=== PATIENT | female | born 1960 ===

== ENCOUNTER 2020-05-09 07:10 | Inpatient (IN) | payer MEDICAID ==
[~2020-05-09] VITALS: Ht 157.5 cm; Wt 80.2 kg
[~2020-05-09 07:10] MED LIST: BENZ2TAB6 PO; CEPH-376 PO; HALO50AM4 IM; HYDR-3240 PO; METH10TA3 PO; RANI150T4 PO; SULF-169 PO; SULF1TAB24 PO; buspar PO; cogentin PO
[2020-05-09] MEDS ORDERED: LORazepam 2 MG/ML, 1ML ONE (07:17)
--- NOTE | 2020-05-09 07:29 | NUR ---
UPON ARRIVAL WITNESSED TONIC CLONIC SEIZURE THAT LASTED APPROXIMATELY 30 SECONDS.
[2020-05-09] MEDS ORDERED: LORazepam 2 MG/ML, 1ML IVPush ONE (07:30)
--- NOTE | 2020-05-09 07:34 | NUR ---
PT HAD ANTHER 30 SECOND TONIC CLONIC SEIZURE. IV ESTABLISHED AT THIS TIME AND MEDICATED NOTED ON MAR
[2020-05-09] MEDS ORDERED: ZIPRASIDONE 20 MG INJ IM ONE (07:43)
[2020-05-09 07:56] LABS: BASOPHILS % (AUTO) 1 % (0-1); EOSINOPHILS % (AUTO) 1 % (1-7); LYMPHOCYTES % (AUTO) 18 % (22-44); MEAN CORPUSCULAR HEMOGLOBIN 28.8 pg (27.0-34.8); MEAN CORPUSCULAR HGB CONC 33.4 g/dL (32.4-35.8); MEAN PLATELET VOLUME 7.7 fL (7.4-10.4); MONOCYTES % (AUTO) 8 % (2-9); NEUTROPHILS % (AUTO) 74 % (42-75); PLATELET COUNT 239 x10^3/uL (130-400); RED BLOOD COUNT 5.16 x10^6/uL (3.82-5.3)
[2020-05-09 08:00] LABS: MD NO
[2020-05-09] MEDS ORDERED: LEVETIRACETAM 1,000 MG in SODIUM CHLORIDE 0.9% 100 ML IV ONE (08:00)
[2020-05-09] MEDS ORDERED: THIAMINE 100 MG in DEXTROSE 5% 50 ML IVPB ONE (08:00)
[2020-05-09] MEDS ORDERED: SODIUM CHLORIDE FLUSH 10ML SYR IVF ONE (08:00)
[2020-05-09 08:04] LABS: ALANINE AMINOTRANSFERASE 72 U/L (12-78); ALBUMIN 3.5 g/dL (3.4-5.0); ANION GAP 6 mmol/L (5-15); CALCIUM 8.4 mg/dL (8.5-10.1); CHLORIDE 102 mmol/L (98-107); CREATININE 0.58 mg/dL (0.55-1.02); SALICYLATE LEVEL 2.3 mg/dL (2.8-20.0)
[2020-05-09 08:06] LABS: ALKALINE PHOSPHATASE 109 U/L (45-117); BILIRUBIN,TOTAL 0.7 mg/dL (0.2-1.0)
--- NOTE | 2020-05-09 08:09 | NUR ---
PT DROWSY, AROUSABLE WITH STIMULATION. BREATHING EVEN AND UNLABORED. ADDITIONAL ANTI-SEIZURE MED STARTED AND PT TO CT VIA GURNEY
[2020-05-09 09:54] LABS: AMPHETAMINE SCREEN, URINE Positive (Negative); BARBITURATE SCREEN, URINE Negative (Negative); BENZODIAZEPINE SCREEN, URINE Negative (Negative); CANNABINOID SCREEN, URINE Negative (Negative); COCAINE SCREEN, URINE Negative (Negative); METHADONE SCREEN, URINE Positive (Negative); OPIATE SCREEN, URINE Negative (Negative)
[2020-05-09 09:57] LABS: MICROSCOPIC INDICATED
[2020-05-09] MEDS ORDERED: CEFTRIAXONE PMX 1GM/50ML 50 ML IV ONE (10:00)
--- NOTE | 2020-05-09 10:02 | NUR ---
REMAINS DROWSY AND MUMBLES WHEN ARROUSED. AWAITING DISPO. CONTINUE TO MONITOR.
[2020-05-09] MEDS ORDERED: CEFTRIAXONE PMX 1GM/50ML 50 ML ONE (10:16)
[2020-05-09] MEDS ORDERED: NS + 40MEQ KCL 500 ML IV SCH (11:00)
[2020-05-09] MEDS ORDERED: POTASSIUM CHLORIDE 20 MEQ in SODIUM CHLORIDE 0.9% 1,000 ML IV ONE (11:30)
[2020-05-09] MEDS ORDERED: SODIUM CHLORIDE FLUSH 10ML SYR IVF PRN (11:30)
[2020-05-09] MEDS ORDERED: SODIUM CHLORIDE 0.9% 1,000 ML IV SCH (12:00)
[2020-05-09] MEDS: CEFTRIAXONE PMX 1GM/50ML 50 ML IV SCH (12:09)
[2020-05-09] MEDS ORDERED: ENOXAPARIN 40 MG/0.4 ML ONE (12:54)
[2020-05-09] MEDS: ENOXAPARIN 40 MG/0.4 ML SQ SCH (12:57)
--- NOTE | 2020-05-09 13:06 | NUR ---
DISTRICT TRAFFIC CHIEF AT BEDSIDE SETTING UP EQUIPMENT
--- NOTE | 2020-05-09 13:51 | NUR ---
EEG COMPLETED. WHEN STIMULATING PT, PT SAYS "I WANT TO GO HOME" AND THEN GOES BACK TO SLEEPING. PT HOLDING FOR ROOM ASSIGNMENT
--- NOTE | 2020-05-09 15:26 | NUR ---
REPORT FROM DEVI PHILIP
--- NOTE | 2020-05-09 15:28 | NUR ---
CONTINUES TO AWAIT ROOM ASSIGNMENT. REMAINS SOMULENT, AROUSES TO STIMULI. BREATHING EVEN AND UNLABORED. REPORT TO BENITA QUINONEZ
--- NOTE | 2020-05-09 15:39 | NUR ---
FIRST CONTACT WITH PT. PT RESTING IN GURNEY W EYES CLOSED, EVEN/REGULAR RESPIRATIONS NOTED. SPO2 >90% ON RA. PT ARROUSABLE TO VOICE AND LIGHT PHYSICAL STIM. OPENS EYES TO COMMAND AND CLEARLY STATED "I NEED TO USE THE BATHROOM". PT W PURE WIC IN PLACE AND IS AWARE. NO URINE OUTPUT NOTED. PT EASILY RETURNS TO SLEEP. BP/SPO2/ECG MONITORING IN PLACE. VSS. NSR ON MONITOR. IVF INFUSING PER ORDER. SZ PRECAUTIONS IN PLACE. HOSPITAL BED REQUESTED.
--- NOTE | 2020-05-09 15:47 | NUR ---
REPORT TO DEVI MYRICK
--- NOTE | 2020-05-09 15:50 | NUR ---
ASSUMED CARE OF PATIENT. REPORT GIVEN FROM DEVI JOY
--- NOTE | 2020-05-09 16:03 | NUR ---
REPORT TO FABIOLA QUINONEZ. TO BE TRANSPORTED TO FLOOR.
[2020-05-09] MEDS ORDERED: POTASSIUM CHLORIDE 40 MEQ in SODIUM CHLORIDE 0.9% 1,000 ML IV SCH (16:24)
[2020-05-09 16:36] VITALS: BP 136/87
[2020-05-09] MEDS: POTASSIUM CHLORIDE 40 MEQ in SODIUM CHLORIDE 0.9% 1,000 ML IV SCH (18:09)
[2020-05-09 18:15] VITALS: BP 146/81
[2020-05-09] MEDS: LEVETIRACETAM 500 MG in SODIUM CHLORIDE 0.9% 100 ML IV SCH (20:22)
[2020-05-10 01:15] VITALS: BP 180/91
[2020-05-10 03:10] VITALS: BP 158/90
[2020-05-10] MEDS: POTASSIUM CHLORIDE 40 MEQ in SODIUM CHLORIDE 0.9% 1,000 ML IV SCH ×2 (04:19→15:21)
[2020-05-10 05:39] LABS: BASOPHILS % (AUTO) 0 % (0-1); EOSINOPHILS % (AUTO) 1 % (1-7); LYMPHOCYTES % (AUTO) 17 % (22-44); MEAN CORPUSCULAR HEMOGLOBIN 28.9 pg (27.0-34.8); MEAN PLATELET VOLUME 8.2 fL (7.4-10.4); MONOCYTES % (AUTO) 6 % (2-9); NEUTROPHILS % (AUTO) 76 % (42-75); PLATELET COUNT 242 x10^3/uL (130-400); RED BLOOD COUNT 5.06 x10^6/uL (3.82-5.3); RED CELL DISTRIBUTION WIDTH 16.2 % (9.6-15.2)
[2020-05-10 05:42] LABS: MD NO
[2020-05-10 05:45] LABS: CHLORIDE 105 mmol/L (98-107)
[2020-05-10 06:01] LABS: ALANINE AMINOTRANSFERASE 59 U/L (12-78); ALBUMIN 3.2 g/dL (3.4-5.0); ALKALINE PHOSPHATASE 107 U/L (45-117); ANION GAP 6 mmol/L (5-15); BILIRUBIN,TOTAL 0.8 mg/dL (0.2-1.0); CALCIUM 8.4 mg/dL (8.5-10.1); CREATININE 0.45 mg/dL (0.55-1.02); TOTAL PROTEIN 7.8 g/dL (6.4-8.2)
[2020-05-10 07:07] VITALS: BP 162/98
[2020-05-10] MEDS: LEVETIRACETAM 500 MG in SODIUM CHLORIDE 0.9% 100 ML IV SCH (08:45)
[2020-05-10] MEDS: CEFTRIAXONE PMX 1GM/50ML 50 ML IV SCH (11:34)
[2020-05-10] MEDS: ENOXAPARIN 40 MG/0.4 ML SQ SCH (11:35)
[2020-05-10 12:47] VITALS: BP 145/90
[2020-05-10 18:46] VITALS: BP 149/84
[2020-05-10] MEDS: LEVETIRACETAM 500 MG TABLET PO SCH (20:45)
[2020-05-11 00:22] VITALS: BP 170/91
[2020-05-11] MEDS: POTASSIUM CHLORIDE 40 MEQ in SODIUM CHLORIDE 0.9% 1,000 ML IV SCH (03:48)
[2020-05-11 07:26] VITALS: BP 150/84
[2020-05-11] MEDS: LEVETIRACETAM 500 MG TABLET PO SCH ×2 (08:38→20:32)
[2020-05-11] MEDS: METHADONE 10 MG TABLET PO SCH (11:20)
[2020-05-11] MEDS: ENOXAPARIN 40 MG/0.4 ML SQ SCH (12:00)
[2020-05-11] MEDS: CEFTRIAXONE PMX 1GM/50ML 50 ML IV SCH (12:11)
[2020-05-11 12:54] VITALS: BP 156/90
[2020-05-11 18:37] VITALS: BP 118/77
[2020-05-12 00:56] VITALS: BP 133/82
[2020-05-12 06:06] LABS: FREE T4 (FREE THYROXINE) 1.37 ng/dL (0.76-1.46)
[2020-05-12 07:07] VITALS: BP 149/97
[2020-05-12] MEDS: METHADONE 10 MG TABLET PO SCH (09:38)
[2020-05-12] MEDS: LEVETIRACETAM 500 MG TABLET PO SCH (09:38)
[2020-05-12] MEDS: CEFTRIAXONE PMX 1GM/50ML 50 ML IV SCH (11:45)
[2020-05-12] MEDS ORDERED: LEVE500T53 PO (12:24)
[2020-05-12] MEDS ORDERED: METH10TA2 PO (12:24)
[2020-05-12] MEDS ORDERED: CEPH250S PO (12:36)
[2020-05-12] MEDS ORDERED: CEPHALEXIN 250 MG/5 ML, ORAL SUSP PO SCH (13:00)
[2020-05-12] MEDS: ENOXAPARIN 40 MG/0.4 ML SQ SCH (13:16)
== END 2020-05-12 13:55 | disposition home or self-care (01) | DRG 53 ==
LOC: ED 10:43 → EDIP 10:49 → 4WST 16:16 → DCLOUNGE 05-12 13:33
PROVIDERS: ADMIT Internal Medicine; ATTEND Internal Medicine
PROC: 0T9B70Z Drainage of Bladder with Drainage Device, Via Natural or Artificial Opening (ICD-10-PCS; principal; 2020-05-09)
DX: G40.409 Other generalized epilepsy and epileptic syndromes, not intractable, without status epilepticus (principal); E74.39 Other disorders of intestinal carbohydrate absorption; E83.39 Other disorders of phosphorus metabolism; E87.1 Hypo-osmolality and hyponatremia; F11.10 Opioid abuse, uncomplicated; B96.20 Unspecified Escherichia coli [E. coli] as the cause of diseases classified elsewhere; E87.6 Hypokalemia; F31.9 Bipolar disorder, unspecified; J98.11 Atelectasis; N30.00 Acute cystitis without hematuria; Z59.0 Homelessness; Z91.14 Patient's other noncompliance with medication regimen; Z91.19 Patient's noncompliance with other medical treatment and regimen; F17.200 Nicotine dependence, unspecified, uncomplicated; R73.9 Hyperglycemia, unspecified; F15.10 Other stimulant abuse, uncomplicated; Z88.5 Allergy status to narcotic agent; Z88.0 Allergy status to penicillin
CPT/HCPCS: 36415; 70450; 71045; 80053; 80299; 80307; 80320; 80329; 81001; 83036; 83735; 84100; 84439; 84443; 84481; 85025; 87077; 87086; 87186; 93005; 95819; 96374; 99285; G0378; J0696; J1650; J1953; J3411; J3480; G0480; J2060; J7030

== ENCOUNTER 2020-05-14 22:06 | Emergency (ER) | payer MEDICAID ==
[~2020-05-14] VITALS: Ht 162.6 cm; Wt 70.0 kg
[~2020-05-14 22:06] MED LIST changes: +CEPH250S PO; +LEVE500T53 PO; +METH10TA2 PO
[2020-05-14] MEDS ORDERED: NALOXONE 0.4 MG/ML, 1ML ONE (22:14)
--- NOTE | 2020-05-14 22:25 | NUR ---
US IV started by SHAHLA.
[2020-05-14] MEDS ORDERED: NALOXONE 0.4 MG/ML, 1ML IVPush ONE (22:30)
--- NOTE | 2020-05-14 22:30 | NUR ---
0.4 Narcan given IV
--- NOTE | 2020-05-14 22:35 | NUR ---
Pt undressed, wrapped in bear hugger.
--- NOTE | 2020-05-14 22:40 | NUR ---
Pt awake, thrashing, yelling. RN at bedside. Pt pulling at IV and monitor chords. Verbal consent from provider to provide soft wrist restraints. Soft wrist restraints applied, tech at bedside with pt.
[2020-05-14 22:51] LABS: BASOPHILS % (AUTO) 1 % (0-1); EOSINOPHILS % (AUTO) 0 % (1-7); LYMPHOCYTES % (AUTO) 22 % (22-44); MEAN CORPUSCULAR HEMOGLOBIN 28.8 pg (27.0-34.8); MEAN CORPUSCULAR HGB CONC 33.6 g/dL (32.4-35.8); MEAN PLATELET VOLUME 7.7 fL (7.4-10.4); MONOCYTES % (AUTO) 8 % (2-9); NEUTROPHILS % (AUTO) 69 % (42-75); PLATELET COUNT 281 x10^3/uL (130-400); RED BLOOD COUNT 5.24 x10^6/uL (3.82-5.3); RED CELL DISTRIBUTION WIDTH 16.1 % (9.6-15.2)
[2020-05-14 22:53] LABS: MD NO
[2020-05-14 23:00] LABS: ALANINE AMINOTRANSFERASE 48 U/L (12-78); ALBUMIN 3.6 g/dL (3.4-5.0); ANION GAP 7 mmol/L (5-15); CALCIUM 8.8 mg/dL (8.5-10.1); CHLORIDE 102 mmol/L (98-107); SALICYLATE LEVEL 1.7 mg/dL (2.8-20.0)
[2020-05-14 23:02] LABS: ALKALINE PHOSPHATASE 123 U/L (45-117); BILIRUBIN,TOTAL 0.6 mg/dL (0.2-1.0); TOTAL PROTEIN 8.5 g/dL (6.4-8.2)
--- NOTE | 2020-05-14 23:22 | NUR ---
break rn; tech/sitter at bed side at this time
[2020-05-15] MEDS ORDERED: HALOPERIDOL 5 MG/ML ONE (00:07)
--- NOTE | 2020-05-15 00:26 | NUR ---
Pt has been thrashing in bed and pulling at monitor and IV cords since administration of Narcan. Sitter has been at bedside. Soft restraints on. Pt still thrashing and yelling. Haldol ordered by provider and given. Pt now sleeping.
[2020-05-15] MEDS ORDERED: HALOPERIDOL 5 MG/ML IM ONE (00:30)
--- NOTE | 2020-05-15 00:48 | NUR ---
Pt in view of sitter. RN at bedside. Pt sleeping. Breathing equal and non-labored.
--- NOTE | 2020-05-15 01:00 | NUR ---
RN at bedside. Pt sleeping. Breathing equal, nonlabored.
--- NOTE | 2020-05-15 01:05 | NUR ---
Soft restraints removed.
--- NOTE | 2020-05-15 01:16 | NUR ---
Pt wet bed. Cleaned up pt and put new bedding on. Applied external female catheter. Pt sleeping. Breathing equal, nonlabored.
--- NOTE | 2020-05-15 02:28 | NUR ---
RN at bedside. Pt sleeping. Breathing equal, unlabored.
--- NOTE | 2020-05-15 03:04 | NUR ---
report received from eleno redman
--- NOTE | 2020-05-15 03:55 | NUR ---
pt awakens to painful stimuli and then quickly falls back to sleep. resp even and unlabored.
--- NOTE | 2020-05-15 04:55 | NUR ---
pt awake and alert. pt able to dress herself
[2020-05-15] MEDS ORDERED: POTASSIUM CHLORIDE 20 MEQ TAB.ER.PRT PO ONE (05:00)
[2020-05-15] MEDS ORDERED: POTASSIUM CHLORIDE 20 MEQ TAB.ER.PRT ONE (05:20)
--- NOTE | 2020-05-15 05:55 | NUR ---
pt steady with cane. ready to go home. taxi voucher given.
[2020-05-15 05:58] VITALS: BP 169/87
== END 2020-05-15 06:00 | disposition home or self-care (01) ==
LOC: ED 22:23
DX: T40.1X1A Poisoning by heroin, accidental (unintentional), initial encounter (principal); F10.121 Alcohol abuse with intoxication delirium; G31.2 Degeneration of nervous system due to alcohol; Z72.9 Problem related to lifestyle, unspecified; R94.31 Abnormal electrocardiogram [ECG] [EKG]; R41.82 Altered mental status, unspecified; I10 Essential (primary) hypertension; G40.909 Epilepsy, unspecified, not intractable, without status epilepticus; Z90.710 Acquired absence of both cervix and uterus; Y90.0 Blood alcohol level of less than 20 mg/100 ml; Y92.89 Other specified places as the place of occurrence of the external cause
CPT/HCPCS: 36415; 80053; 80299; 80320; 80329; 85025; 93005; 96372; 96374; 99285; J1630; J2310; G0480

== ENCOUNTER 2020-07-02 16:20 | Emergency (ER) | payer MEDICAID ==
[~2020-07-02] VITALS: Ht 157.5 cm; Wt 74.0 kg
[~2020-07-02 16:20] MED LIST changes: +HYDR-1067 PO; -HYDR-3240 PO
--- NOTE | 2020-07-02 16:28 | NUR ---
Pt assisted into gown, placed on bedside monitor and solvent recoverer completed. Pt affect flat, seems to continue to fall asleep and takes awhile to answer questions. Pt denies ETOH use, tobacco use, or drug use stating her last drink was weeks ago. Large complex scar to L arm at inner aspect of [place]bo extending to both upper and lower arm areas noted and scar to r inner ankle present.
--- NOTE | 2020-07-02 16:46 | NUR ---
Bilat feet washed with body wash and warm water washcloths, allowed to air dry, and pt tolerated with c/o pain around all wounds found on great toes and 5th otes on bilat feet. Wound like area to R plantar surface in distal arch noted but closed in nature, and all toenails are thick, yellowed, and flaking with strong odor present as soon as shoes were taken off.
[2020-07-02] MEDS ORDERED: ACETAMINOPHEN 325 MG TABLET ONE (16:53)
[2020-07-02] MEDS ORDERED: ACETAMINOPHEN 325 MG TABLET PO ONE (17:00)
--- NOTE | 2020-07-02 17:10 | NUR ---
fruit grading supervisor states pt was not cooperative with positioning for xrays as ordered and kept falling asleep. Tylenol given at this time as ordered for pain without issue. Pt took loud verbal stimulus and soft shaking of shoulder to wake up enough to take Tylenol, however.
--- NOTE | 2020-07-02 17:55 | NUR ---
Pt provided XXL socks for her use, but she tried one on and did not like the fit and threw it back stating it was too small and she did not want it. Pt then said she left her jacket in a taxi on her way here. Provided pt with a wind-breaker type jacket which she accepted. Pt requested taxi voucher, which was provided, and then wheeled to d/c area in wheelchair secondary to pain. Room search revealed she had all her belongings with her that she came in with.
[2020-07-02 18:07] VITALS: BP 141/75
== END 2020-07-02 18:09 | disposition home or self-care (01) ==
LOC: ED 16:47
DX: M21.612 Bunion of left foot (principal); M21.611 Bunion of right foot; M79.671 Pain in right foot; M79.672 Pain in left foot; I10 Essential (primary) hypertension; Z59.0 Homelessness; Z90.710 Acquired absence of both cervix and uterus
CPT/HCPCS: 99283